=== PATIENT | male | born 1955 | race Hispanic/Latino ===

== ENCOUNTER 2018-02-10 08:29 | Day surgery (SDC) | payer OTHER, BC ==
--- OUTSIDE RECORDS SUMMARY | 2018-02-10 08:31 | XMS REPORT | Clinical Summary ---
:1955 Author Organization [facility] Address [address] [place] [address] Care Team Providers Name Role Phone Shayna Escobar MD Primary Care Provider Allergies No Known Allergies Current Medications Prescription Sig. Disp. Refills Start Date End Date Status sevelamer (RENVELA) Take 800 mg by Active 800 mg tablet mouth 3 (three) times a day. insulin GLARGINE Inject 5 Units Active (LANTUS) 100 unit/mL under the skin injection nightly. metoprolol tartrate Take 100 mg by Active (LOPRESSOR) 100 MG mouth 3 (three) tablet times a day. simvastatin (ZOCOR) Take 20 mg by Active 20 MG tablet mouth daily. minoxidil (LONITEN) Take 5 mg by Active 10 MG tablet mouth 2 (two) times a day. FOLIC ACID/VIT B Take 1 tablet by Active COMPLEX AND C mouth daily. (DIALYVITE 800 ORAL) UNABLE TO FIND Take 1 tablet by Active mouth daily. Med Name: Renaplex D B complex-vitamin Take 1 tablet by 07/21/2017 Discontinued C-folic acid mouth daily. (NEPHRO-ALBERTO) 0.8 mg tablet cinacalcet Take 30 mg by 10/26/2017 Discontinued (SENSIPAR) 30 MG mouth daily. tablet famotidine (PEPCID) Take 20 mg by 07/21/2017 Discontinued 20 MG tablet mouth nightly. famotidine (PEPCID) Take 60 mg by 10/26/2017 Discontinued 20 MG tablet mouth every evening. Active Problems Problem Noted Date AV graft malfunction, initial encounter 10/26/2017 Clotted renal dialysis AV graft 07/21/2017 Hypoglycemia 06/09/2016 Encounters Date Type Specialty Care Team Description 10/28/2017 Anesthesia Event General Surgery Chhaya Nicole, TRIMMER SAWYER 10/28/2017 Procedure Pass General Surgery 10/28/2017 Surgery General Surgery Christiane Gallegos THROMBECTOMY, YORK MD GRAFT, STENT PLACEMENT, AND BALLOON ANGIOPLASTY. 10/27/2017 Anesthesia Event General Surgery Peggy Vásquez, TRIMMER SAWYER 10/27/2017 Procedure Pass General Surgery 10/26/2017 - Emergency General Internal Brendan Romero MD AV graft malfunction, initial encounter (Primary Dx); 10/28/2017 Dennise Bergman MD 07/22/2017 Anesthesia Event General Surgery Mauro Kovacs, TRIMMER SAWYER 07/22/2017 Procedure Pass General Surgery 07/22/2017 Surgery General Surgery Chaya Mcpherson, DECLOTTING OF AV MD GRAFT LEFT UPPER EXTREMITY WITH FLUOROSCOPY, BALLOON ANGIOPLASTY AND STENTING 07/21/2017 - Emergency General Internal Parish Nunez Clotted renal dialysis AV graft, initial encounter (Primary Dx); 07/22/2017 Travis Ewing MD ESRD (end stage renal disease) on dialysis; Lenora Burton Hyperkaleankur Thompson MD after 02/09/2017 Immunizations Name Dates Previously Given Next Due Pneumococcal Conjugate 13-Valent 07/22/2017 Family History Medical History Relation Name Comments Leukemia Father Diabetes Mother Kidney disease Sister Relation Name Status Comments Father Mother Sister Social History Tobacco Use Types Packs/Day Years Used Date Never Smoker Smokeless Tobacco: Never Used Alcohol Use Drinks/Week oz/Week Comments No Sex Assigned at Date Recorded Not on file Last Filed Vital Signs Vital Sign Reading Time Taken Blood Pressure 135/63 10/28/2017 7:25 PM CORN DETASSELER Pulse 75 10/28/2017 7:25 PM CORN DETASSELER Temperature 36.3 C (97.3 F) 10/28/2017 7:25 PM CORN DETASSELER Respiratory Rate 17 10/28/2017 7:25 PM CORN DETASSELER Oxygen Saturation 100% 10/28/2017 7:25 PM CORN DETASSELER Inhaled Oxygen Concentration - - Weight 59.1 kg (130 lb 3.2 oz) 07/22/2017 5:49 AM CDT Height 154.9 cm (5' 1") 10/28/2017 7:40 AM CORN DETASSELER Body Mass Index 24.6 07/22/2017 5:49 AM CDT Plan of Treatment Health Maintenance Due Date Last Done Comments COLONOSCOPY 2006 ZOSTER VACCINE 2016 INFLUENZA VACCINE 06/29/2017 Implants Implanted Type Area Ram Press Operator Device Expiration Model / Identifier Date Serial / Lot System Thrmbtmy Otw 6fr 50cm Angiojet Avx - [id number] Surgical N/A: N/A [place] 04/28/2019 [id number] / Implanted: Qty: 1 on 07/22/2017 by Chaya Mcpherson MD Implants; SCIENTIFIC JAMES / Expanders; [id number] Extenders; Surgical Wires Catheter Health Underwriter 4x75cm 12mm Conquest - [id number] Surgical N/A: N/A SOMONAUK PERIPHERAL 02/27/2020 [id number] / Implanted: Qty: 1 on 07/22/2017 by Chaya Mcpherson MD Implants; VASCULAR / Expanders; [id number] Extenders; Surgical Wires Catheter Health Underwriter 4x75cm 10mm Conquest - [id number] Surgical N/A: N/A SOMONAUK PERIPHERAL 07/29/2020 [id number] / Implanted: 10/28/2017 (Quantity not on file) Implants; VASCULAR / Expanders; [id number] Extenders; Surgical Wires Catheter Emboltmy Fgrty Otw Thru-Lmn 0.035in 5.5fr 40cm - [id number] Surgical N/A: N/A ANGEL 11/16/2019 [id number] / Implanted: 10/28/2017 (Quantity not on file) Implants; LIFESCIENCES / Expanders; [id number] Extenders; Surgical Wires System Thrmbtmy Otw 6fr 50cm Angiojet Avx - [id number] Surgical N/A: N/A [place] 08/16/2019 [id number] / Implanted: 10/28/2017 (Quantity not on file) Implants; SCIENTIFIC JAMES / Expanders; [id number] Extenders; Surgical Wires Stent Endprths Viabahn 75x5cm 7mm Heprn Bioactv Surf - [id number] - [id number] Surgical N/A: N/A W L GORE 04/02/2020 [id number] / Implanted: Qty: 1 on 07/22/2017 by Chaya Mcpherson MD Stents [id number] / [id number] Stent Endprths Viabahn [id number] 8mm Heprn Bioactv Surf - [id number] - [id number] Surgical Left: W Beatris GORTrey 05/12/2020 [id number] / Implanted: Qty: 1 on 10/28/2017 by Christiane Gallegos MD [facility] [id number] / [id number] Procedures Procedure Name Priority Date/Time Associated Diagnosis Comments ANESTHESIA PERIPHERAL Routine 10/28/2017 9:51 AM BLOCK CORN DETASSELER Procedure Note - Serenity Forman MD - 10/28/2017 9:50 AM CORN DETASSELER Peripheral Block Performed by: SERENITY FORMAN Authorized by: SERENITY FORMAN Patient Location: Pre-op End Time: 10/28/2017 8:32 AM Reason for Block: at surgeon's request Staff: Anesthesiologist: SERENITY FORMAN Resident/TRIMMER SAWYER/AA: VIVIANA POSEY Preprocedure: patient identified, IV checked, site and side verified, risks and benefits discussed, procedure verified, surgical consent complete, patient position confirmed, monitors and equipment checked, pre-op evaluation complete and site marked Time Out Performed: 10/28/2017 8:11 AM Peripheral Nerve Block: Patient Position: Right lateral decubitus Prep: ChloraPrep and patient draped Monitoring: Blood pressure monitoring, continuous pulse oximetry and heart rate Block Type: Supraclavicular Laterality: Left Injection Technique: Single injection Procedures: ultrasound guided Ultrasound documentation: Printed/placed in chart Local Infiltration (See MAR for details): Ropivacaine Needle: Needle Type: Pajunk Needle Gauge: 21 G Needle Length: 10 cm Assessment: Injection Assessment: Visualized needle/local anesthetic surrounding nerve , visualized pertinent vascular structures and nerves, needle tip visualized at all times during injection of medication, no symptoms of intraneural/intravenous injection and intermittent aspiration during local anesthetic administration Paresthesia Pain: None Heart Rate Change: No Slow Fractionated Injection: Yes Block outcome: No apparent complications, patient comfortable and patient tolerated procedure well HEMODIALYSIS Routine 07/22/2017 12:15 PM CDT VT AN ELECTIVE ENDOTRACHEAL AIRWAY Routine 07/22/2017 8:55 AM CDT Procedure Note - Randy Abreu MD - 07/22/2017 8:50 AM CDT Airway Date/Time: 07/22/2017 8:10 AM Performed by: RANDY ABREU Authorized by: RANDY ABREU Location: OR Urgency: Elective Difficult Airway: No Anesthesiologist: RANDY ABREU Resident/TRIMMER SAWYER: MAURO KOVACS Performed by: resident/TRIMMER SAWYER Preoxygenated with 100% O2: Yes C-spine Precautions Maintained Throughout: Yes Mask Ventilation: Easy mask Final Airway Type: Endotracheal airway Final Endotracheal Airway: ETT Cuffed: Yes Technique Used: Video laryngoscopy Devices/Methods Used in Placement: Intubating stylet Laryngoscope Blade/Videolaryngoscope Blade Size: 3 ETT Size (mm): 8.0 Cuff at minimum occlusion pressure: Yes Measured from: Lips ETT to Lips (cm): 24 Placement Verified by: CO2 detection and direct visualization Laryngoscopic view: Grade IIa - partial view of glottis Rapid Sequence Induction (RSI): No Modified RSI: No Attempted to place LMA iGel twice, one size 5 and the other was a size 4 . Both had poor seal resulting in small tidal volumes and big leak. Decided to convert to ETT to secure airway; used Glidescope electively. HEMODIALYSIS STAT 07/21/2017 10:24 PM CDT HEMODIALYSIS CATHETER Routine 07/21/2017 6:36 PM Clotted renal Results for this PLACEMENT CDT dialysis AV graft, procedure are in initial encounter the results section. after 02/09/2017 Results POC glucose (10/28/2017 6:13 PM)Only the most recent of12 resultswithin the time period is included. Component Value Ref Range POC glucose 108 (H) 65 - 99 mg/dL Comment: RN Notified Meter ID: [id number] Breakfast Attendant: Rubens Urena Specimen Performing Laboratory [facility] DEPARTMENT OF PATHOLOGY AND GENOMIC MEDICINE [address] [place] [address] Hepatitis B surface antigen (10/28/2017 1:20 PM)Only the most recent of2 resultswithin the time period is included. Component Value Ref Range Hepatitis B surface Ag Non-reactive Non-reactive Specimen Performing Laboratory Blood [facility] DEPARTMENT OF PATHOLOGY AND GENOMIC MEDICINE [address] [place] [address] [place] > I Hour (10/28/2017 9:45 AM)Only the most recent of2 resultswithin the time period is included. Specimen Performing Laboratory [facility] [address] [place] [address] Narrative EXAMINATION:OR [place] 1 HOUR CLINICAL HISTORY:Pain IMPRESSION: Fluoroscopy was provided. No radiologist present.Please see procedure report for discussion of procedure, findings. [id number] Procedure Note Hm Interface, Radiology Results Incoming - 10/28/2017 9:58 AM CORN DETASSELER EXAMINATION: OR [place] 1 HOUR CLINICAL HISTORY: Pain IMPRESSION: Fluoroscopy was provided. No radiologist present. Please see procedure report for discussion of procedure, findings. [id number] Estimated GFR (10/28/2017 5:38 AM)Only the most recent of5 resultswithin the time period is included. Component Value Ref Range GFR Non Af Amer 3 (A) mL/min/1.73 m2 GFR Af Amer 3 (A) mL/min/1.73 m2 Comment: Chronic kidney disease: <60 mL/min/1.73m2 Kidney failure: <15 mL/min/1.73m2 The estimated GFR is calculated from the IDMS-traceable Modification of Diet in Renal Disease Equation. The accuracy of the calculation is poor when the creatinine is normal. Calculated values >90 mL/min/1.73m2 are not reported. This equation has not been validated in children (<18 years), women, the elderly (>70 years), or ethnic groups other than Caucasians and Americans. Specimen Performing Laboratory Plasma specimen [facility] DEPARTMENT OF PATHOLOGY AND GENOMIC MEDICINE [address] [place] [address] CBC with platelet and differential (10/28/2017 5:38 AM)Only the most recent of4 resultswithin the time period is included. Component Value Ref Range WBC 6.6 4.5 - 11.0 k/uL RBC 3.68 (L) 4.40 - 6.00 m/uL HGB 11.1 (L) 14.0 - 18.0 g/dL HCT 35.2 (L) 41.0 - 51.0 % MCV 95.7 82.0 - 100.0 fL MCH 30.2 27.0 - 34.0 pg MCHC 31.5 31.0 - 37.0 g/dL RDW - SD 53.2 37.0 - 55.0 fL MPV 8.9 6.9 - 11.0 fL Platelet count 200 150 - 400 K/uL Nucleated RBC 0.00 /100 WBC Neutrophils 63.3 39.0 - 69.0 % Lymphocytes 15.1 (L) 25.0 - 45.0 % Monocytes 13.1 (H) 0.0 - 10.0 % Eosinophils 7.4 (H) 0.0 - 5.0 % Basophils 0.6 0.0 - 1.0 % Immature granulocytes 0.5 0.0 - 1.0 % Specimen Performing Laboratory Blood [facility] DEPARTMENT OF PATHOLOGY AND GENOMIC MEDICINE [address] [place] [address] Basic metabolic panel (10/28/2017 5:38 AM)Only the most recent of3 resultswithin the time period is included. Component Value Ref Range Sodium 141 135 - 148 mEq/L Potassium 6.2 (HH)Comment: K results called to and read back by 3.5 - 5.0 mEq /L Olman Lugo/CHRISTINA 10/28/2017 06:40 slsss Chloride 100 98 - 112 mEq/L CO2 21 (L) 24 - 31 mEq/L Anion gap 20 (H) 7 - 15 mEq/L Comment: Starting from February , anion gap calculation no longer incorporates potassium. Please note the change. BUN 89 (H) 8 - 23 mg/dL Creatinine 18.4 (H) 0.7 - 1.2 mg/dL Glucose 118 (H) 65 - 99 mg/dL Calcium 9.4 8.8 - 10.2 mg/dL Specimen Performing Laboratory Plasma specimen [facility] DEPARTMENT PATHOLOGY AND [address] [address] Type and screen (10/27/2017 8:30 AM) Component Value Ref Range ABO grouping O Rh type POS Antibody screen (gel) NEG Specimen Performing Laboratory Blood [facility] DEPARTMENT OF PATHOLOGY AND [address] [address] XR Chest 1 Vw Portable (10/27/2017 8:07 AM) Specimen Performing Laboratory [facility] [address] [place] [address] Narrative EXAMINATION:XR CHEST 1 VW PORTABLE CLINICAL HISTORY:preop clearance COMPARISON:January 19, 2017 FINDINGS: A stent projects over the subclavian region on the left. The heart is borderline accentuated by the AP technique. Accounting for this no acute finding is visualized. There are mild diffuse interstitial changes throughout the lungs which appear mainly chronic. Mild basilar atelectasis is not excluded however. IMPRESSION: Mild cardiomegaly with chronic interstitial changes no definite acute finding is visualized [id number] Procedure Note Hm Interface, Radiology Results Incoming - 10/27/2017 8:17 AM CORN DETASSELER EXAMINATION: XR CHEST 1 VW PORTABLE CLINICAL HISTORY: preop clearance COMPARISON: January 19, 2017 FINDINGS: A stent projects over the subclavian region on the left. The heart is borderline accentuated by the AP technique. Accounting for this no acute finding is visualized. There are mild diffuse interstitial changes throughout the lungs which appear mainly chronic. Mild basilar atelectasis is not excluded however. IMPRESSION: Mild cardiomegaly with chronic interstitial changes no definite acute finding is visualized [id number] Comprehensive metabolic panel (10/27/2017 4:40 AM)Only the most recent of3 resultswithin the time period is included. Component Value Ref Range Sodium 144 135 - 148 mEq/L Potassium 5.3 (H) 3.5 - 5.0 mEq/L Chloride 102 98 - 112 mEq/L CO2 22 (L) 24 - 31 mEq/L Anion gap 20 (H) 7 - 15 mEq/L Comment: Starting from February , anion gap calculation no longer incorporates potassium. Please note the change. BUN 83 (H) 8 - 23 mg/dL Creatinine 16.2 (H) 0.7 - 1.2 mg/dL Glucose 139 (H) 65 - 99 mg/dL Calcium 9.1 8.8 - 10.2 mg/dL Protein 6.7 6.3 - 8.3 g/dL Albumin 4.2 3.5 - 5.0 g/dL A/G ratio 1.7 0.7 - 3.8 Alkaline phosphatase 61 40 - 129 U/L AST 18 10 - 50 U/L ALT 15 5 - 50 U/L Total bilirubin 0.3 0.2 - 1.2 mg/dL Specimen Performing Laboratory Plasma specimen [facility] DEPARTMENT OF PATHOLOGY AND GENOMIC MEDICINE [address] [place] [address] Bedside glucose (10/26/2017 9:30 PM) Component Value Ref Range POC glucose 77 Specimen Performing Laboratory Blood Potassium level (10/26/2017 9:15 PM)Only the most recent of3 resultswithin the time period is included. Component Value Ref Range Potassium 4.8 3.5 - 5.0 mEq/L Specimen Performing Laboratory Plasma specimen [facility] DEPARTMENT OF PATHOLOGY AND GENOMIC MEDICINE [address] [place] [address] Troponin (10/26/2017 6:24 PM)Only the most recent of2 resultswithin the time period is included. Component Value Ref Range Troponin <0.30 0.00 - 0.30 ng/mL Comment: 0.11 - 1.49 ng/mlMay indicate increased risk of acute coronary syndrome. >=1.5 ng/mlConsistent with acute myocardial infarction. The diagnostic value of a single normal or non-diagnostic result is questionable.Serial samples at 2-6 hour intervals are required to rule out acute myocardial injury. Specimen Performing Laboratory Plasma specimen [facility] PATHOLOG[facility] [address] [place] [address] Partial thromboplastin time, activated (10/26/2017 4:09 PM)Only the most recent of2 resultswithin the time period is included. Component Value Ref Range PTT 35.2 23.0 - 36.0 sec Comment: PTT therapeutic range for unfractionated heparin is 61.0-112.0 seconds which corresponds to Anti-Xa 0.3-0.7 U/ml. Specimen Performing Laboratory Blood [address] [place] [address] Prothrombin time with INR (10/26/2017 4:09 PM)Only the most recent of2 resultswithin the time period is included. Component Value Ref Range Prothrombin time 12.8 12.0 - 15.0 sec INR 1.0 Comment: The International Normalized Ratio (INR) is a therapeutic monitoring tool for patients who are stable on oral anticoagulant therapy. An INR of 2.0-3.0 is suggested for deep vein thrombosis/pulmonary embolism. Specimen Performing Laboratory Blood [facility] [address] [place] [address] B natriuretic peptide (10/26/2017 4:09 PM) Component Value Ref Range BNP 513 (H) 0 - 100 pg/mL Specimen Performing Laboratory Blood [address] [place] [address] Lipase level (10/26/2017 4:09 PM) Component Value Ref Range Lipase 70 (H) 13 - 60 U/L Specimen Performing Laboratory Plasma specimen [address] [place] [address] Creatine kinase, total (CPK) (10/26/2017 4:09 PM) Component Value Ref Range Creatine kinase 209 39 - 308 U/L Specimen Performing Laboratory Plasma specimen [facility] DEPARTMENT OF PATHOLOGY AND GENOMIC MEDICINE [address] [place] [address] Amylase level (10/26/2017 4:09 PM) Component Value Ref Range Amylase 53 13 - 73 U/L Specimen Performing Laboratory Plasma specimen [facility] DEPARTMENT OF PATHOLOGY AND GENOMIC MEDICINE [address] [place], [place] [address] ECG 12 lead (10/26/2017 3:49 PM)Only the most recent of2 resultswithin the time period is included. Component Value Ref Range Ventricular rate 55 Atrial rate 55 VT interval 194 QRSD interval 76 QT interval 442 QTC interval 422 P axis 1 57 QRS axis 1 185 T wave axis 81 EKG impression Sinus bradycardia-In automated comparison with ECG of 21-JUL-2017 16:52,-Questionable change in QRS axis- Specimen Performing Laboratory [facility] MUSE [address] [place] [address] ECG ED Preliminary Interpretation - NOT AN ORDER (07/26/2017 9:40 PM) Bakari Amaya PA-C 07/22/20176:47 PM ECG ED Preliminary Interpretation - Not an Order Performed by: REED AMAYA Authorized by: PARISH NUNEZ ECG reviewed by ED Physician in the absence of a crown ironer: yes Interpretation: Interpretation: normal Rate: ECG rate:63 ECG rate assessment: normal Rhythm: Rhythm: sinus rhythm Ectopy: Ectopy: none QRS: QRS axis:Normal QRS intervals:Normal Conduction: Conduction: normal ST segments: ST segments:Normal T waves: T waves: normal Phosphorus level (07/22/2017 3:25 AM) Component Value Ref Range Phosphorus 1.8 (L) 2.4 - 4.5 mg/dL Specimen Performing Laboratory Plasma specimen [facility] DEPARTMENT OF PATHOLOGY AND GENOMIC MEDICINE [address] [place] [address] Magnesium level (07/22/2017 3:25 AM) Component Value Ref Range Magnesium 2.4 1.6 - 2.4 mg/dL Specimen Performing Laboratory Plasma specimen [facility] DEPARTMENT OF PATHOLOGY AND GENOMIC MEDICINE [address] [place] [address] Hepatitis B surface Ab, quantitative (07/22/2017 12:25 AM) Component Value Ref Range Hepatitis B surface Ab 31.62 IU/L Comment: The anti-HBs is greater than or equal to 10 IU/L. This patient has either had an antibody response to HBV vaccination, received a transfusion, or has recovered from HBV infection. This patient should be considered immune to hepatitis B. An anti-HBs result greater than or equal to 10 IU/L implies immunity. For post-vaccination antibody testing guidelines for the general public refer to MMWR November 20, 2005/Vol. 54(No. 16);12-21, and for healthcare workers refer to MMWR November 17, 2013/Vol. 62(No. 10);12-17. Reference Interval: anti-HBs 9.99 IU/L or less ....... Negative 10.00 IU/L or greater .... Positive Results greater than 1,000.00 IU/L are reported as greater than 1,000.00 IU/L. Performed by [facility], [address] [place] [id number] [email or web address], Humphrey Orosco MD - Lab. Director Specimen Performing Laboratory [facility] [address] [place] [address] Hepatitis B surface antibody (07/22/2017 12:25 AM) Component Value Ref Range Hepatitis B surface Ab Reactive (A) Non-reactive Specimen Performing Laboratory Blood [facility] DEPARTMENT OF PATHOLOGY AND GENOMIC MEDICINE [address] [place] [address] HEMODIALYSIS CATHETER PLACEMENT (07/21/2017 6:36 PM) EVELIN Robertson 07/21/20176:36 PM Hemodialysis catheter placement Date/Time: 07/21/2017 6:35 PM Performed by: DEBBIE MATHEWS Authorized by: DEBBIE MATHEWS Consent: Written consent obtained. Risks and benefits: risks, benefits and alternatives were discussed Consent given by: patient Patient understanding: patient states understanding of the procedure being performed Patient consent: the patient's understanding of the procedure matches consent given Procedure consent: procedure consent matches procedure scheduled Relevant documents: relevant documents present and verified Test results: test results available and properly labeled Site marked: the operative site was marked Imaging studies: imaging studies available Patient identity confirmed: arm band, hospital-assigned identification number, provided demographic data and verbally with patient Time out: Immediately prior to procedure a "time out" was called to verify the correct patient, procedure, equipment, child support specialist and site/side marked as required. Preparation: Patient was prepped and draped in the usual sterile fashion. Local anesthesia used: yes Anesthesia: local infiltration Anesthesia: Local anesthesia used: yes Local Anesthetic: lidocaine 1% without epinephrine Sedation: Patient sedated: no Patient tolerance: Patient tolerated the procedure well with no immediate complications Comments: No complications. after 02/09/2017 Insurance Payer Benefit Plan / Group Subscriber ID Type Phone Address MEDICARE MEDICARE PART A AND B xxxxxxxxxx Medicare [place], [place] AETNA AETNA HMO,POS,EPO, MC/EC xxxxxxxxxx HMO Home: [address] [phone] [phone]
[2018-02-10 08:58] LABS: Absolute Monocytes 0.5 K/uL (0.1-1.3); Absolute Neutrophil 3.9 K/uL (1.8-8.0); Basophils % 2.6 % (0-1.3); Eosinophils % 2.3 % (0-4.4); Hematocrit 34.7 % (39.6-49.0); Lymphocytes % 17.8 % (15.3-44.8); MCH 30.9 pg (27.0-35.0); MPV 7.3 fL (7.6-11.3); Monocytes % 8.5 % (3.3-12.3); RBC Red Blood Cell Count 3.77 M/uL (4.33-5.43)
[2018-02-10 08:59] LABS: Potassium 5.1 mEq/L (3.6-5.0)
[2018-02-10 09:09] LABS: Albumin 4.7 g/dL (3.2-5.5); Bilirubin Total 0.7 mg/dL (0.3-1.2); Protein, Total 7.4 g/dL (6.0-8.3)
[2018-02-10 09:38] LABS: Thyroid Stimulating Hormone 3.88 uIU/mL (0.34-5.60)
[2018-02-10] MEDS ORDERED: NA CHLORIDE 0.9% 500 ML ONE (09:45)
[2018-02-10] MEDS ORDERED: D50W 25 GM/50 ML SYRINGE IV ONE (10:02)
[2018-02-10] MEDS ORDERED: LIDOCAINE 1% MPF 5 ML VIAL ONE (11:18)
[2018-02-10] MEDS ORDERED: PROPOFOL 200 MG/20 ML VIAL IV ONE (11:18)
--- NOTE | 2018-02-22 08:37 | ENDO RPT ---
[address], [address] COLONOSCOPY PROCEDURE REPORT EXAM DATE: 02/10/2018 PATIENT NAME: Oscar Dooley MR #: [id number] BIRTHDATE: 1955 ATTENDING: Patrick Polk Dr STATUS: outpatient AIR HOLE DRILLER: Iesha Serrano, Ciarra Villarreal RN, and Lorri Cee RN INDICATIONS: The patient is a 62 yr old Male here for a colonoscopy due to colon cancer screening PROCEDURE PERFORMED: Screening Colonoscopy MEDICATIONS: Per Anesthesia. ESTIMATED BLOOD LOSS: None CONSENT: The patient understands the risks and benefits of the procedure and understands that these risks include, but are not limited to: sedation, allergic reaction, infection, perforation and/or bleeding. Alternative means of evaluation and treatment include, among others: physical exam, x-rays, and/or surgical intervention. The patient elects to proceed with this endoscopic procedure. DESCRIPTION OF PROCEDURE: During intra-op preparation period all mechanical medical equipment was checked for proper function. Hand hygiene and appropriate measures for infection prevention was taken. Procedure, possible complications, alternatives including, but not limited to possibility of bleeding, perforation, tear, infection, sepsis, need for surgery, need for blood transfusion, were explained to the patient. After the risks, benefits and alternatives of the procedure were thoroughly explained, Informed consent was verified, confirmed and timeout was successfully executed by the treatment team. The patient was placed in the left lateral position. A digital rectal exam was performed and revealed no abnormalities of the rectum. After appropriate level of anesthesia, the scope was passed. The [id number] ([id number]) endoscope was introduced through the anus and advanced to the cecum, which was identified by both the appendix and ileocecal valve. The quality of the prep was good. The instrument was then slowly withdrawn as the colon was fully examined. Scope withdrawal time was 7 minutes. COLON FINDINGS: Moderate sized internal hemorrhoids were found. Tortuous / redundant colon. Retroflexion was not performed, too narrow and non-compliant. The scope was then completely withdrawn from the patient and the procedure terminated. ADVERSE EVENTS: There were no complications. IMPRESSIONS: 1. Moderate sized internal hemorrhoids 2. Tortuous / redundant colon 3. Intubation to cecum RECOMMENDATIONS: 1. yearly hemoccult starting in 4 years 2. fiber rich diet RECALL: Return in 10 year(s) for Colonoscopy. Patrick Polk Dr eSigned: Patrick Polk Dr 02/10/2018 12:12 PM cc: Faisal Escobar CPT CODES: ICD9 CODES: PATIENT NAME: Oscar Dooley MR#: [id number]
--- NOTE | 2018-02-22 08:37 | ENDO RPT ---
[address], [address] EGD PROCEDURE REPORT EXAM DATE: 02/10/2018 PATIENT NAME: Oscar Dooley MR#: [id number] BIRTHDATE: 1955 ATTENDING: Patrick Polk Dr STATUS: outpatient CHANNELER RUNNER: Iesha Serrano, Ciarra Villarreal RN, and Lorri Cee RN INDICATIONS: The patient is a 62 yr old Male here for an EGD due to heartburn, belching, dyspepsia, regurgitation, chronic cough, and nausea and vomiting PROCEDURE PERFORMED: EGD with biopsy MEDICATIONS: Per Anesthesia. TOPICAL ANESTHETIC: none CONSENT: The patient understands the risks and benefits of the procedure and understands that these risks include, but are not limited to: sedation, allergic reaction, infection, perforation and/or bleeding. Alternative means of evaluation and treatment include, among others: physical exam, x-rays, and/or surgical intervention. The patient elects to proceed with this endoscopic procedure. DESCRIPTION OF PROCEDURE: During intra-op preparation period all mechanical medical equipment was checked for proper function. Hand hygiene and appropriate measures for infection prevention was taken. Procedure, possible complications, and alternatives including but not limited to the possibility of bleeding, perforation, tear, infection, sepsis, need for surgery, need for blood transfusion, and anesthesia related complications were explained to the patient. After the risks, benefits and alternatives of the procedure were thoroughly explained, Informed consent was verified, confirmed and timeout was successfully executed by the treatment team. The patient was placed in the left lateral position. The patient was anesthetized with topical anesthesia. Through the anesthetized oropharyngeal area, the scope was passed without any difficulty. The [id number] ([id number]) endoscope was introduced through the mouth and advanced to the second portion of the duodenum. Retroflexed views revealed a small hiatal hernia. The gastroscope was then slowly withdrawn and removed. LA Class B esophagitis was found in the lower esophagus. A small hiatal hernia was found Multiple (4) erosions with surrounding edema were found in the antrum. Multiple biopsies were obtained and sent to pathology. ADVERSE EVENTS: There were no complications. IMPRESSIONS: 1. LA Class B esophagitis in the lower esophagus 2. A small hiatal hernia 3. Multiple (4) erosions with surrounding edema in the antrum, s/p biopsies RECOMMENDATIONS: REPEAT EXAM: Patrick Polk Dr eSigned: Patrick Polk Dr 02/10/2018 11:46 AM cc: CPT CODES: ICD9 CODES: PATIENT NAME: Oscar Dooley MR#: [id number]
--- NOTE | 2018-02-22 08:37 | ENDO RPT ---
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 TOPICAL ANESTHETIC: none CONSENT: The patient understands the risks and benefits of the procedure and understands that these risks include, but are not limited to: sedation, allergic reaction, infection, perforation and/or bleeding. Alternative means of evaluation and treatment include, among others: physical exam, x-rays, and/or surgical intervention. The patient elects to proceed with this endoscopic procedure. DESCRIPTION OF PROCEDURE: During intra-op preparation period all mechanical medical equipment was checked for proper function. Hand hygiene and appropriate measures for infection prevention was taken. Procedure, possible complications, and alternatives including but not limited to the possibility of bleeding, perforation, tear, infection, sepsis, need for surgery, need for blood transfusion, and anesthesia related complications were explained to the patient. After the risks, benefits and alternatives of the procedure were thoroughly explained, Informed consent was verified, confirmed and timeout was successfully executed by the treatment team. The patient was placed in the left lateral position. The patient was anesthetized with topical anesthesia. Through the anesthetized oropharyngeal area, the scope was passed without any difficulty. The EG-[id number] ([id number]) endoscope was introduced through the mouth and advanced to the second portion of the duodenum. Retroflexed views revealed a small hiatal hernia. The gastroscope was then slowly withdrawn and removed. LA Class B esophagitis was found in the lower esophagus. A small hiatal hernia was found Multiple (4) erosions with surrounding edema were found in the antrum. Multiple biopsies were obtained and sent to pathology. ADVERSE EVENTS: There were no complications. IMPRESSIONS: 1. LA Class B esophagitis in the lower esophagus 2. A small hiatal hernia 3. Multiple (4) erosions with surrounding edema in the antrum, s/p biopsies RECOMMENDATIONS: REPEAT EXAM: Patrick Polk Dr eSigned: Patrick Polk Dr 02/10/2018 11:46 AM cc: CPT CODES: ICD9 CODES: PATIENT NAME: Oscar Dooley MR#: [id number]
== END 2018-02-10 13:35 | disposition home or self-care (01) ==
LOC: OR 08:29
PROVIDERS: ATTEND Internal Medicine Gastroenterology
PROC: 0DJD8ZZ Inspection of Lower Intestinal Tract, Via Natural or Artificial Opening Endoscopic (ICD-10-PCS; principal; 2018-02-10 11:00)
PROC: 0DB68ZX Excision of Stomach, Via Natural or Artificial Opening Endoscopic, Diagnostic (ICD-10-PCS; 2018-02-10 11:00)
DX: K21.0 Gastro-esophageal reflux disease with esophagitis (principal); Z12.11 Encounter for screening for malignant neoplasm of colon; K29.50 Unspecified chronic gastritis without bleeding; K25.9 Gastric ulcer, unspecified as acute or chronic, without hemorrhage or perforation; K44.9 Diaphragmatic hernia without obstruction or gangrene; K64.8 Other hemorrhoids; Q43.8 Other specified congenital malformations of intestine; G47.30 Sleep apnea, unspecified; I12.9 Hypertensive chronic kidney disease with stage 1 through stage 4 chronic kidney disease, or unspecified chronic kidney disease; E11.22 Type 2 diabetes mellitus with diabetic chronic kidney disease; N18.9 Chronic kidney disease, unspecified; Z99.2 Dependence on renal dialysis; Z85.46 Personal history of malignant neoplasm of prostate; Z82.49 Family history of ischemic heart disease and other diseases of the circulatory system
CPT/HCPCS: 36415; 80053; 82947; 82962; 84443; 85025; 88305; 88312

== ENCOUNTER → 2023-12-20 | Emergency (ER) | payer BC, OTHER ==
[~2023-12-20] MED LIST: HYDRALAZINE HCL 20 MG/ML VIAL ONE
[2023-12-20 18:49] LABS: Hematocrit 28.9 % (39.6-49.0); Lymphocytes % 15.1 % (15.3-44.8); MCV 96.2 fL (80-100); MPV 7.2 fL (7.6-11.3); Platelets 261 thou/uL (152-406)
[2023-12-20 19:13] LABS: ALT/SGPT 27 U/L (16-61); AST/SGOT 14 U/L (15-37); Albumin 3.7 g/dL (3.4-5.0); Alkaline Phosphatase 160 U/L (45-117); BUN Blood Urea Nitrogen 90 mg/dL (7-18); Bicarbonate 25 mEq/L (21-32); Bilirubin Total 0.4 mg/dL (0.2-1.0); Glomerular Filtration Rate 4 ml/min (=/>90); Glucose Level 275 mg/dL (74-106); Magnesium 2.8 mg/dL (1.6-2.4); NT PRO-BNP 8873 pg/mL (<125); Potassium 4.7 mEq/L (3.5-5.1); Protein, Total 7.4 g/dL (6.4-8.2); Sodium Level 134 mEq/L (136-145); Troponin High Sensitivity 19.1 pg/mL (<58.9)
[2023-12-20 19:14] LABS: Bilirubin Direct < 0.1 mg/dL (0-0.2); Bilirubin Indirect, Calculated ND mg/dL (0.2-0.8)
--- NOTE | 2023-12-20 20:06 | EDPHYS ---
Physician Documentation [facility] Name: Oscar Dooley Age: 68 yrs Sex: Male : 1955 Arrival Date: 12/20/2023 Time: 17:45 Bed 11 Private MD: ED Physician Jason Erickson HPI: 12/20 18:22 This 68 yrs old Male presents to ER via Ambulatory with complaints of Blood sb4 Pressure Problem. 18:22 patient with ESRD on HD MWF went to HD today, could not be completed due to elevated sb4 BP. BP recorded 220/100s x 3 despite 0.2 clonidine. patient denies any CP, sob, n/v. Historical: - Allergies: 18:07 Adhesives; ld1 18:07 Iodinated Contrast Media - IV Dye; ld1 18:07 Iodine; ld1 18:07 Vancomycin; ld1 19:45 HYDRALAZINE; pf1 - PMHx: 18:07 Hypercholesterolemia; Hypertensive disorder; kidney disease; ld1 - PSHx: 18:07 colon resection; ld1 - Immunization history:: Adult Immunizations up to date. - Social history:: Smoking status: Patient denies any tobacco usage or history of. Patient/guardian denies using alcohol. ROS: 18:22 Constitutional: Negative for fever, chills, and weight loss, sb4 18:22 All other systems are negative, Exam: 18:22 Constitutional: This is a well developed, well nourished patient who is awake, alert, sb4 and in no acute distress. Head/Face: Normocephalic, atraumatic. Eyes: Extra-ocular motions intact. Periorbital areas with no swelling, redness, or edema. ENT: Mucous membranes moist. Cardiovascular: Regular rate and rhythm with a normal S1 and S2. Respiratory: Lungs have equal breath sounds bilaterally, clear to auscultation and percussion. No rales, rhonchi or wheezes noted. No increased work of breathing, no retractions or nasal flaring. Abdomen/GI: Soft, non-tender, no distension. Skin: Warm, dry with normal turgor. Normal color with no rashes, no lesions, and no evidence of cellulitis. MS/ Extremity: Pulses equal, no cyanosis. Neurovascular intact. Full, normal range of motion. Neuro: Awake and alert, GCS 15, oriented to person, place, time, and situation. Motor strength 5/5 in all extremities. Sensory grossly intact. Vital Signs: 18:07 Pulse 65; Resp 18; Pulse Ox 96% on R/A; Weight 56.7 kg; Height 5 ft. 1 in. ; Pain 0/10; ld1 18:07 BP 189 / 71; Temp 97.4(TE); ld1 19:55 BP 161 / 68; Pulse 64; Resp 15 S; Pulse Ox 98% on R/A; jw7 20:15 BP 155 / 66; Pulse 61; Resp 18; Pulse Ox 100% on R/A; Pain 0/10; pf1 18:07 Body Mass Index 23.62 (56.70 kg, 154.94 cm) ld1 18:07 Pain Scale: Adult ld1 20:15 Pain Scale: Adult pf1 MDM: 18:14 Patient medically screened. sb4 18:22 Differential diagnosis: hypertensive emergency, fluid overload, hyperkalemia, ACS. sb4 20:03 Data reviewed: vital signs, nurses notes, lab test result(s), EKG, radiologic studies, sb4 and as a result, I will discharge patient. Consideration of Admission/Observation Escalation of care including admission/observation considered. Historians other than the Patient: Spouse/Significant Other: . Care significantly affected by the following chronic conditions: Hypertension, Chronic Kidney Disease. Counseling: I had a detailed discussion with the patient and/or guardian regarding the historical points, exam findings, and any diagnostic results supporting the discharge/admit diagnosis, the presence of at least one elevated blood pressure reading (>120/80) during this emergency department visit, lab results, radiology results. ED course: discussed at length with patient and admission for HD vs dispo. BP has improved, labs are resassuring, patient is asymptomatic. patient wishes to go home and will go to [facility] for HD tomorrow. he will come back to the ED if he is unable to get in. instructed him to return if he has any chest pain or difficulty breathing. patient and understand. 12/20 18:15 Order name: Basic Metabolic Panel; Complete Time: 19:18 sb4 12/20 18:15 Order name: CBC with Diff; Complete Time: 18:53 sb4 12/20 18:15 Order name: LFT's; Complete Time: 19:18 sb4 12/20 18:15 Order name: Magnesium; Complete Time: 19:18 sb4 12/20 18:15 Order name: NT PRO-BNP; Complete Time: 19:18 sb4 12/20 18:15 Order name: PT-INR; Complete Time: 18:54 sb4 12/20 18:15 Order name: Troponin HS; Complete Time: 19:18 sb4 12/20 18:15 Order name: XRAY Chest (1 view) sb4 12/20 18:15 Order name: EKG; Complete Time: 18:15 sb4 12/20 18:15 Order name: Cardiac monitoring; Complete Time: 19:57 sb4 12/20 18:15 Order name: EKG - Nurse/Tech; Complete Time: 19:57 sb4 12/20 18:15 Order name: IV Saline Lock; Complete Time: 18:42 sb4 12/20 18:15 Order name: Labs collected and sent; Complete Time: 18:42 sb4 12/20 18:15 Order name: O2 Per Protocol; Complete Time: 19:57 sb4 12/20 18:15 Order name: O2 Sat Monitoring; Complete Time: 19:57 sb4 EC:54 Rate is 64 beats/min. Rhythm is regular, Normal Sinus Rhythm with 1st degree heart sb4 block. Right axis deviation noted. MD interval is prolonged at 212 msec. QRS interval is normal at 88 msec. QT interval is normal at 426 msec. No Q waves. T waves are Normal. No ST changes noted. Clinical impression: 1st degree heart block and No evidence of ischemia. Interpreted by me. Reviewed by me. Administered Medications: 19:45 CANCELLED ( stated patient is allergic ): [id number] mg IVP once pf1 Disposition Summary: 12/20/23 20:05 Discharge Ordered Notes: Location: Home sb4 Problem: new sb4 Symptoms: have improved sb4 Condition: Stable sb4 Diagnosis - End stage renal disease sb4 - Essential (primary) hypertension sb4 Followup: sb4 - With: Emergency Department - When: As needed - Reason: Trouble breathing, Worsening of condition Discharge Instructions: - Discharge Summary Sheet sb4 - Hypertension, Adult sb4 - End-Stage Kidney Disease sb4 - How to Take Your Blood Pressure, [id number] sb4 Forms: - Medication Reconciliation Form sb4 - Thank You Letter sb4 - Antibiotic Education sb4 - Prescription Opioid Use sb4 - Patient Portal Instructions sb4 - Leadership Thank You Letter sb4 Addendum: 12/25/2023 07:00 Co-signature as Attending Physician, Jason Erickson MD I reviewed the patient's care r t provided by the Advanced Practice Provider and agree with the diagnosis and treatment plan. Signatures: Dispatcher [employer] EDMI Bebe Grace RN RN ld1 Judith Roman PA-C PAWalterC sb4 Jason Erickson MD MD rt Terri Ulloa RN RN pf1 Corrections: (The following items were deleted from the chart) 12/20 19:45 19:19 hydrALAZINE IVP 10 mg IVP once ordered. sb4 pf1 19:45 19:45 hydrALAZINE IVP 10 mg IVP once ordered. pf1 pf1
--- NOTE | 2023-12-20 20:06 | ER ---
Nurse's Notes [facility] Name: Oscar Dooley Age: 68 yrs Sex: Male : 1955 Arrival Date: 12/20/2023 Time: 17:45 Bed 11 Private MD: Diagnosis: End stage renal disease;Essential (primary) hypertension Presentation: 12/20 18:07 Chief complaint: Patient states: Unable to do dialysis today because my blood pressure ld1 was too high. Coronavirus screen: At this time, the client does not indicate any symptoms associated with coronavirus-19. Ebola Screen: No symptoms or risks identified at this time. Initial Sepsis Screen: Does the patient meet any 2 criteria? No. Patient's initial sepsis screen is negative. Does the patient have a suspected source of infection? No. Patient's initial sepsis screen is negative. Risk Assessment: Do you want to hurt yourself or someone else? Patient reports no desire to harm self or others. Onset of symptoms was December 20, 2023. 18:07 Method Of Arrival: Ambulatory ld1 18:07 Acuity: SALVATORE 3 ld1 Triage Assessment: 18:07 General: Appears in no apparent distress. comfortable, Behavior is calm, cooperative, ld1 appropriate for age. Pain: Denies pain. EENT: No signs and/or symptoms were reported regarding the EENT system. Neuro: Level of Consciousness is awake, alert, obeys commands, Oriented to person, place, time, situation. Cardiovascular: Capillary refill < 3 seconds Patient's skin is warm and dry. Respiratory: Airway is patent Respiratory effort is even, unlabored. GI: Abdomen is round non-distended. : No signs and/or symptoms were reported regarding the genitourinary system. Derm: No signs and/or symptoms reported regarding the dermatologic system. Musculoskeletal:. Historical: - Allergies: 18:07 Adhesives; ld1 18:07 Iodinated Contrast Media - IV Dye; ld1 18:07 Iodine; ld1 18:07 Vancomycin; ld1 19:45 HYDRALAZINE; pf1 - PMHx: 18:07 Hypercholesterolemia; Hypertensive disorder; kidney disease; ld1 - PSHx: 18:07 colon resection; ld1 - Immunization history:: Adult Immunizations up to date. - Social history:: Smoking status: Patient denies any tobacco usage or history of. Patient/guardian denies using alcohol. Screenin:57 [facility] ED Fall Risk Assessment (Adult) History of falling in the last 3 months, jw7 including since admission No falls in past 3 months (0 pts) Score/Fall Risk Level 0 - 2 = Low Risk Oriented to surroundings, Maintained a safe environment, Educated pt \T\ family on fall prevention, incl call for assistance when getting out of bed. Abuse screen: Denies threats or abuse. Denies injuries from another. Nutritional screening: No deficits noted. Tuberculosis screening: No symptoms or risk factors identified. Assessment: 19:40 General: Appears in no apparent distress. comfortable, well groomed, well developed, pf1 Behavior is calm, cooperative, appropriate for age, quiet. 19:40 Pain: Denies pain. Neuro: No deficits noted. Level of Consciousness is awake, alert, pf1 obeys commands, Oriented to person, place, time, situation. Cardiovascular: Reports elevated BP, was sent here from dialysis. Patient stated did not get dialysis today. Respiratory: No deficits noted. Airway is patent Respiratory effort is even, unlabored, Respiratory pattern is regular, symmetrical. GI: No deficits noted. No signs and/or symptoms were reported involving the gastrointestinal system. : No deficits noted. No signs and/or symptoms were reported regarding the genitourinary system. EENT: No deficits noted. No signs and/or symptoms were reported regarding the EENT system. Derm: No deficits noted. No signs and/or symptoms reported regarding the dermatologic system. Vital Signs: 18:07 Pulse 65; Resp 18; Pulse Ox 96% on R/A; Weight 56.7 kg; Height 5 ft. 1 in. ; Pain 0/10; ld1 18:07 BP 189 / 71; Temp 97.4(TE); ld1 19:55 BP 161 / 68; Pulse 64; Resp 15 S; Pulse Ox 98% on R/A; jw7 20:15 BP 155 / 66; Pulse 61; Resp 18; Pulse Ox 100% on R/A; Pain 0/10; pf1 18:07 Body Mass Index 23.62 (56.70 kg, 154.94 cm) ld1 18:07 Pain Scale: Adult ld1 20:15 Pain Scale: Adult pf1 ED Course: 18:01 Patient arrived in ED. ae5 18:03 [facility] sb4 18:03 Jason Erickson MD is Attending Physician. sb4 18:07 Arm band placed on right wrist. ld1 18:08 Triage completed. ld1 18:41 Initial lab(s) drawn, by me, sent to lab. Inserted saline lock: 22 gauge in right ap3 wrist, using aseptic technique. Blood collected. 18:42 Basic Metabolic Panel Sent. ap3 18:42 CBC with Diff Sent. ap3 18:42 LFT's Sent. ap3 18:42 Magnesium Sent. ap3 18:42 NT PRO-BNP Sent. ap3 18:42 Troponin HS Sent. ap3 19:39 XRAY Chest (1 view) In Process Unspecified. EDMS 19:55 EKG done, by ED staff, reviewed by Judiht Roman PA-C. jw7 19:57 Patient has correct armband on for positive identification. Bed in low position. Call jw7 light in reach. 19:58 No provider procedures requiring assistance completed. jw7 20:19 IV discontinued, intact, bleeding controlled, No redness/swelling at site. Pressure pf1 dressing applied. 20:23 Provided Education on: follow up and dialysis. pf1 Administered Medications: 19:45 CANCELLED ( stated patient is allergic ): [id number] mg IVP once pf1 Medication: 19:58 VIS not applicable for this client. jw7 Outcome: 20:05 Discharge ordered by . sb4 20:23 Discharged to home ambulatory, with family, pf1 20:23 Condition: improved 20:23 Discharge instructions given to patient, family, Instructed on discharge instructions, follow up and referral plans. Demonstrated understanding of instructions, follow-up care, 20:23 Patient left the ED. pf1 Signatures: Dispatcher [employer] EDMS Joyce Cruz RN RN ap3 Bebe Grace RN RN ld1 Vaelncia Angulo RN RN jw7 Brown, Sophia, PA-C PA-C sb4 Terri Ulloa RN RN pf1 Yanira Ma ae5
--- NOTE | 2023-12-20 20:49 | RAD REPORT ---
[facility] CLINICAL HISTORY: CHEST PAIN COMPARISON: Chest Single View dated 03/07/2023; Chest Single View dated 03/03/2023; Chest Pa And Lat (2 Views) dated 04/03/2020; CHEST PA AND LAT 2 VIEW dated 11/25/2012 TECHNIQUE: Portable AP view of the chest. FINDINGS: The lungs are clear. Vascular stents along the upper mediastinum and supraclavicular regio n bilaterally, stable. No pneumothorax or effusion. The cardiomediastinal contours are unremarkable. IMPRESSION: No acute cardiopulmonary process.
[2023-12-21 01:04] VITALS: TEMP 97.4
[2023-12-21 01:22] VITALS: BP 155/66; O2SAT 100
--- NOTE | 2023-12-21 17:49 | EKG ---
Test Date: 2023-12-20 Test Time: 19:50:24 Information Resources Manager: PATRICK MEASUREMENT RESULTS: Intervals: Rate: 64 MT: 212 QRSD: 88 QT: 426 QTc: 439 [place]: P: 71 MT: 212 QRS: 93 T: 73 INTERPRETIVE STATEMENTS: Sinus rhythm with 1st degree AV block Rightward axis Borderline ECG Compared to ECG 12/20/2023 19:48:22 First degree AV block now present Right-axis deviation now present Myocardial infarct finding no longer present Electronically Signed On 12-21-23 17:48:22 [employer] by Chad Fregoso
--- NOTE | 2023-12-21 17:49 | EKG ---
Test Date: 2023-12-20 Test Time: 19:48:22 Database Management Specialist: PATRICK MEASUREMENT RESULTS: Intervals: Rate: 64 MI: 208 QRSD: 86 QT: 426 QTc: 439 [place]: P: 110 MI: 208 QRS: 101 T: 105 INTERPRETIVE STATEMENTS: Suspect arm lead reversal, interpretation assumes no reversal Normal sinus rhythm Lateral infarct, age undetermined Inferior infarct, age undetermined Abnormal ECG Compared to ECG 03/09/2023 11:37:49 Myocardial infarct finding now present Left posterior fascicular block no longer present ST (T wave) deviation no longer present Electronically Signed On 12-21-23 17:48:24 [employer] INST[employer] by Chad Fregoso
== END ==
LOC: ER 17:45
DX: I12.0 Hypertensive chronic kidney disease with stage 5 chronic kidney disease or end stage renal disease (principal); Z88.3 Allergy status to other anti-infective agents; Z88.8 Allergy status to other drugs, medicaments and biological substances; Z91.041 Radiographic dye allergy status; Z91.048 Other nonmedicinal substance allergy status
CPT/HCPCS: 93005 ×2; 85025; 80048; 36415; 83735; 85610; 80076; 84484; 83880; 71045; 99284; J0360

== ENCOUNTER 2025-07-23 21:40 | Emergency (ER) | payer BC, OTHER ==
[2025-07-23] MEDS ORDERED: ACETAMINOPHEN 325 MG TABLET ONE (23:43)
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
[2025-07-24 07:22] VITALS: TEMP 98.6
[2025-07-24 07:34] VITALS: BP 122/59; O2SAT 99
== END 2025-07-24 03:28 | disposition home or self-care (01) ==
LOC: ER 21:40
DX: S39.092A Other injury of muscle, fascia and tendon of lower back, initial encounter (principal); R51.9 Headache, unspecified; V49.49XA Driver injured in collision with other motor vehicles in traffic accident, initial encounter
CPT/HCPCS: 70450; 71250; 72125; 74176